=== PATIENT | male | born 1975 | race Two or more races ===

== ENCOUNTER 2019-08-29 16:03 | Emergency (ER) | payer SELFPAY ==
[~2019-08-29] VITALS: Ht 168.9 cm; Wt 115.4 kg
[2019-08-29] MEDS ORDERED: LORazepam 2 MG/ML, 1ML IVPush ONE (16:30)
[2019-08-29] MEDS ORDERED: SODIUM CHLORIDE 0.9% 1,000ML IVBOLUS ONE ×2 (16:30→17:30)
[2019-08-29] MEDS ORDERED: SODIUM CHLORIDE FLUSH 10ML SYR IVF ONE (16:30)
--- NOTE | 2019-08-29 16:32 | NUR ---
THIS IS A 44 YO MALE COMING IN FOR ABD AND CHEST "CRAMPS" STARTING AT 0830 THIS MORNING. PATIENT STATES PAIN/CRAMPING STARTING IN LOWER LEFT QUADRANT AND STARTED GOING UP INTO CHEST. DENIES N/V, DENIES TENDERNESS TO PALPATION. + DIAPHORESIS, DENIES SOB. PATIENT STATES "WE WENT OUT LAST NIGHT FOR THE FIRST TIME IN [address] AND I DRANK [address] TOO MUCH", STATES THIS IS THE FIRST TIME DRINKING IN 3 MONTHS, DENIES ETOH ABUSE PREVIOUS TO THAT ("2-3 BEERS OR MAYBE A COUPLE SHOTS AFTER WORK"). ADMITS TO DRINKING 2-3 RED BULLS TODAY. ALL MONITORING IN PLACE, TACHYCARDIC WITH POTENTIAL PROLONGED QT. ALL OTHER VITALS WNL. PIV PLACED, LABS DRAWN, IVF STARTED. VAGAL MANEUVERS ATTEMPTED WIT MEREDITH, NO SUCCESS TO LOWER HR.
[2019-08-29] MEDS ORDERED: LORazepam 2 MG/ML, 1ML ONE (16:40)
--- NOTE | 2019-08-29 16:43 | NUR ---
PATIENT MEDICATED PER EMAR, TOELRATED WELL
[2019-08-29 16:50] LABS: ALANINE AMINOTRANSFERASE 99 U/L (12-78); ALBUMIN 4.5 g/dL (3.4-5.0); ANION GAP 13 mmol/L (5-15); CALCIUM 8.8 mg/dL (8.5-10.1); CHLORIDE 106 mmol/L (98-107); CREATININE 2.19 mg/dL (0.7-1.3)
[2019-08-29 16:51] LABS: BASOPHILS # (AUTO) 0.05 x10^3/uL (0-0.1); BASOPHILS % (AUTO) 0 % (0-1); EOSINOPHILS # (AUTO) 0.01 x10^3/uL (0-0.4); EOSINOPHILS % (AUTO) 0 % (1-7); LYMPHOCYTES # (AUTO) 3.23 x10^3/uL (1-3.4); LYMPHOCYTES % (AUTO) 21 % (22-44); MD NO; MEAN CORPUSCULAR HEMOGLOBIN 29.4 pg (27.5-34.5); MEAN CORPUSCULAR HGB CONC 33.3 g/dL (33.2-36.2); MEAN CORPUSCULAR VOLUME 88.2 fL (81-97); MEAN PLATELET VOLUME 8.4 fL (7.4-10.4); MONOCYTES # (AUTO) 1.13 x10^3/uL (0.2-0.8); MONOCYTES % (AUTO) 7 % (2-9); NEUTROPHILS % (AUTO) 72 % (42-75); PLATELET COUNT 356 x10^3/uL (130-400); RED BLOOD COUNT 5.84 x10^6/uL (4.38-5.82); RED CELL DISTRIBUTION WIDTH 13.9 % (9.4-14.8)
[2019-08-29 16:56] LABS: ALKALINE PHOSPHATASE 114 U/L (45-117); BILIRUBIN,TOTAL 1.6 mg/dL (0.2-1.0); TOTAL PROTEIN 9.3 g/dL (6.4-8.2); TROPONIN I < 0.015 ng/mL (0.000-0.045)
[2019-08-29 17:19] LABS: FREE T4 (FREE THYROXINE) 1.04 ng/dL (0.76-1.46)
[2019-08-29 18:00] LABS: AMPHETAMINE SCREEN, URINE Positive (Negative); BARBITURATE SCREEN, URINE Negative (Negative); BENZODIAZEPINE SCREEN, URINE Negative (Negative); CANNABINOID SCREEN, URINE Negative (Negative); COCAINE SCREEN, URINE Negative (Negative); METHADONE SCREEN, URINE Negative (Negative); OPIATE SCREEN, URINE Negative (Negative)
[2019-08-29 18:02] LABS: MICROSCOPIC INDICATED
--- NOTE | 2019-08-29 18:30 | NUR ---
PATIENT IN US
--- NOTE | 2019-08-29 18:52 | NUR ---
REPORT FROM NERI TANNER ASSUMING CARE OF PT AT THIS TIME
--- NOTE | 2019-08-29 18:55 | NUR ---
REPORT GIVEN TO CIRO BLANKENSHIP. PLAN OF CARE DISCUSSED
[2019-08-29 19:26] VITALS: BP 111/66
--- NOTE | 2019-08-29 19:27 | NUR ---
Patient/Caregiver given discharge instructions and they have confirmed that they understand the instructions. Patient ambulatory with steady gait.
== END 2019-08-29 19:34 | disposition home or self-care (01) ==
LOC: ED 16:54
DX: N28.9 Disorder of kidney and ureter, unspecified (principal); E86.0 Dehydration; D72.829 Elevated white blood cell count, unspecified; E03.9 Hypothyroidism, unspecified; R73.9 Hyperglycemia, unspecified; F10.10 Alcohol abuse, uncomplicated; F15.10 Other stimulant abuse, uncomplicated; F41.9 Anxiety disorder, unspecified; R00.0 Tachycardia, unspecified; Z87.891 Personal history of nicotine dependence; Y90.9 Presence of alcohol in blood, level not specified
CPT/HCPCS: 36415; 74176; 76700; 80053; 80307; 81001; 83690; 83735; 84439; 84443; 84484; 85025; 87086; 93005; 96361; 96374; 99285; J2060; J7030